=== PATIENT | male | born 1980 | race African-American/Black ===

== ENCOUNTER 2023-02-02 09:57 | Day surgery (SDC) | payer BC ==
[2023-01-26 09:42] VITALS: BMI 37.1
[2023-02-02] MEDS ORDERED: MIDAZOLAM HCL 2 MG/2 ML SINGLE DOSE VIAL ONE (10:17)
[2023-02-02] MEDS ORDERED: SEVOFLURANE 250 ML BTL ONE (10:27)
[2023-02-02] MEDS ORDERED: BUPIVACAINE HCL/EPINEPHRINE/PF 30 ML VIAL IJ ONE (10:33)
[2023-02-02] MEDS ORDERED: ALBUTEROL SO4 HFA INHALER IH ONE (10:35)
[2023-02-02] MEDS ORDERED: BUPIVACAINE HCL/PF 2.5 MG/ML - 30 ML VIAL IJ ONE (10:42)
[2023-02-02] MEDS ORDERED: ROCURONIUM BROMIDE 50 MG/5 ML SYRINGE ONE (10:55)
[2023-02-02] MEDS ORDERED: SUGAMMADEX SODIUM 200 MG/2 ML VIAL ONE ×2 (11:12→12:04)
[2023-02-02] MEDS ORDERED: PROPOFOL 20 ML ONE (12:07)
[2023-02-02] MEDS ORDERED: ONDANSETRON 4 MG/2 ML VIAL IVPUSH PRN ×2 (12:23→18:25)
[2023-02-02] MEDS ORDERED: oxyCODONE HCL 5 MG TABLET PO PRN ×3 (12:23)
[2023-02-02] MEDS ORDERED: ACETAMINOPHEN 1000 MG/100 ML BAG IVPB ONE (12:24)
[2023-02-02] MEDS ORDERED: LACTATED RINGERS SOLUTION 1,000 ML IV SCH (12:30)
[2023-02-02] MEDS ORDERED: SODIUM CHLORIDE 1,000 ML IV SCH (12:30)
[2023-02-02 12:57] LABS: HEMATOCRIT 38.6 % (35.4-49); HEMOGLOBIN 12.5 G/dL (11.7-16.9); MCH 27.7 pg (25.7-33.7); MCHC 32.5 g/dl (32.0-35.9); MEAN CELL VOLUME 85.1 fl (80-96); PLATELET COUNT 205.9 10^3/uL (134-434); RBC 4.53 10^6/uL (4.00-5.60); RDW 14.7 % (11.9-15.9); WHITE BLOOD COUNT 8.7 10^3/uL (4.0-10.8)
[2023-02-02 13:00] LABS: CALCIUM 8.4 mg/dl (8.5-10); CREATININE 0.9 mg/dl (0.55-1.3)
[2023-02-02] MEDS ORDERED: FENTANYL CITRATE/PF 50 MCG/ML VIAL ONE (13:01)
[2023-02-02] MEDS ORDERED: ACETAMINOPHEN INJECTION 100 ML IVPB ONE (13:01)
[2023-02-02 13:15] VITALS: RESP 18
[2023-02-02] MEDS ORDERED: FAMOTIDINE 20 MG/50 ML IVPB 20 MG/50 ML MG IVPB ONE (13:51)
[2023-02-02] MEDS ORDERED: FAMOTIDINE 20 MG PREMIXED IVPB IVPB ONE (13:53)
[2023-02-02 14:24] VITALS: TEMP 97.7
[2023-02-02] MEDS ORDERED: oxyCODONE HCL 5 MG TABLET ONE (14:50)
[2023-02-02 15:18] VITALS: BP 131/76; PULSE 68
[2023-02-02] MEDS ORDERED: FAMOTIDINE 20 MG/50 ML IVPB 20 MG/50 ML MG IVPB SCH (22:00)
== END 2023-02-02 15:15 | disposition home or self-care (01) ==
LOC: FASU 09:57
PROVIDERS: ATTEND Surgery
PROC: 0FT44ZZ Resection of Gallbladder, Percutaneous Endoscopic Approach (ICD-10-PCS; principal; 2023-02-02 11:11)
DX: K81.1 Chronic cholecystitis (principal)
CPT/HCPCS: 36415; 80048; 85027; 88304-TC; 94760